=== PATIENT | female | born 1960 | race African-American/Black ===

== ENCOUNTER 2017-04-02 14:21 | Emergency (ER) | payer OTHER ==
[~2017-04-02] VITALS: Ht 177.8 cm; Wt 131.5 kg
--- NOTE | ~2017-04-02 | CR181 ---
[facility] A Service [facility] RADIOLOGY TEXT RESULTS PATIENT: ESTELA FRAUSTO LOCATION: SED : 64 UNIT #: [id number] AGE: [address]: SUSAN LOPEZ SEX: F ORDER DR: [id number] [address] [address] [id number] MR#: [id number] Acc #: [id number] NAME: ESTELA FRAUSTO : 1960 SEX: F STUDY DATE/TIME: 04/02/2017 15:28 UNIT: SED ROOM: STUDY DESCRIPTION: CR Lumbar Spine 2 or 3 Views Attending Physician: Yury Iglesias Ordering Physician: Staff Doctor Not On Primary Care Physician: No Primary Care Physician MEDICAL IMAGING REPORT This report is preliminary unless electronic signature is present. EXAM Lumbar series 04/02/2017 INDICATIONS 56-year-old female with trauma, back pain. 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 TECHNIQUE 3 views of the lumbar spine compared with 04/29/2015 FINDINGS There is mild dextroscoliosis which may be partly positional. There is stable grade 1 antegrade listhesis of L4 with respect to L5 grade 1 in degree. This measures about 6-7 mm. There is degenerative disc disease at L4-5 and L5-S1 and L3-4 to a lesser degree. No acute fracture. There is advanced facet arthropathy at L5-S1 and more moderate changes of L4-5. IMPRESSION 1. Degenerative changes in the lumbar spine with antegrade listhesis of L4 on L5 similar to the prior study. No acute fracture. Mild dextroscoliosis. Dictated by... Randall Perez M.D. THIS IS AN ELECTRONICALLY VERIFIED REPORT Randall Perez M.D. at 04/03/2017 11:21 PM GORDY/rafael TD: 04/03/2017 04:46 JOB #: [id number] [facility] A Service of [facility] RADIOLOGY TEXT RESULTS PATIENT: ESTELA FRAUSTO LOCATION: [facility] #: [id number] : 64 UNIT #: [id number] AGE: [address]: SUSAN LOPEZ SEX: F ORDER DR: MEDICAL IMAGING REPORT Page 1 of 1
[~2017-04-02 14:21] MED LIST: ATORVASTATIN CA10 MG PO; HYDROCHLOROTHIA25 MG PO; KEFLEX PO; METFORMIN PO; NORVASC10 MG PO; OMEGA 3 FISH1 CAP.EC PO; OMEGA-31000 M1 PO; PRILOSEC PO; PRINIVIL10 MG PO; VICODIN 5/500 T1 TAB PO; VITAMIN D PO; VITAMIN D400 UNI2
[2017-04-02] MEDS ORDERED: B COMPLEX1 EACH (14:32)
== END 2017-04-02 16:39 | disposition home or self-care (01) ==
LOC: SED 14:21
DX: S39.012A Strain of muscle, fascia and tendon of lower back, initial encounter (principal); S76.912A Strain of unspecified muscles, fascia and tendons at thigh level, left thigh, initial encounter; S76.911A Strain of unspecified muscles, fascia and tendons at thigh level, right thigh, initial encounter; Z91.041 Radiographic dye allergy status; X50.9XXA Other and unspecified overexertion or strenuous movements or postures, initial encounter; Y92.69 Other specified industrial and construction area as the place of occurrence of the external cause; Y99.0 Civilian activity done for income or pay
CPT/HCPCS: 72100; 99283